=== PATIENT | male | born 1980 | race Caucasian/White ===

== ENCOUNTER 2016-07-27 17:10 | Emergency (ER) | payer MEDICAID ==
[~2016-07-27] VITALS: Ht 182.9 cm; Wt 92.0 kg
[2016-07-27] MEDS ORDERED: LORazepam 1MG TABLET PO ONE (17:30)
[2016-07-27] MEDS ORDERED: LORazepam 1MG TABLET ONE (17:31)
[2016-07-27 17:54] LABS: ASPARTATE AMINO TRANSFERASE 45 U/L (15-37); BLOOD UREA NITROGEN 26 mg/dL (7-18)
[2016-07-27 18:08] LABS: ACETAMINOPHEN < 2 mcg/mL (10-30)
[2016-07-27 18:32] LABS: HIV 1&2 ANTIBODY SCREEN Nonreactive (Nonreactive); HIV-1 p24 ANTIGEN Nonreactive (Nonreactive)
[2016-07-28 00:53] VITALS: BP 128/74
== END 2016-07-28 00:54 | disposition home or self-care (01) ==
LOC: ED 19:00
DX: F41.1 Generalized anxiety disorder (principal); F15.10 Other stimulant abuse, uncomplicated; F12.10 Cannabis abuse, uncomplicated; B86 Scabies
CPT/HCPCS: 36415; 80053; 80307; 80329; 85025; 86703; 86803; 87521; 87899; 93005; G0435; G0480